=== PATIENT | female | born 1945 | race Caucasian/White ===

== ENCOUNTER 2018-03-21 07:48 | Outpatient (CLI) | payer MEDICARE ==
[2018-03-21] VITALS (21 sets, daily range): BP systolic 118–146; BP diastolic 72–95
== END 2018-03-21 23:59 | disposition home or self-care (01) ==
LOC: CARD DIAG 07:48
PROVIDERS: ATTEND Family Medicine
DX: R55 Syncope and collapse (principal)
CPT/HCPCS: 93660

== ENCOUNTER 2018-03-22 10:03 | Outpatient (CLI) | payer MEDICARE | END 2018-03-25 23:59 | disposition home or self-care (01) | LOC: RAD 10:03 | PROVIDERS: ATTEND Family Medicine | DX: R55 Syncope and collapse (principal); R40.0 Somnolence; R06.4 Hyperventilation | CPT/HCPCS: 95816 ==

== ENCOUNTER 2018-07-02 19:44 | Emergency (ER) | payer MEDICARE, OTHER ==
[~2018-07-02] VITALS: Ht 558.9 cm; Wt 78.0 kg
[2018-07-02 20:34] LABS: BASOPHILS # (AUTO) 0.1 X10'3 (0-0.2); BASOPHILS % (AUTO) 0.5 % (0-1); EOSINOPHILS # (AUTO) 0.1 X10'3 (0-0.9); EOSINOPHILS % (AUTO) 0.6 % (0-6); HEMATOCRIT 40.4 % (35.0-45.0); HEMOGLOBIN 13.6 g/dl (12.0-16.0); LYMPHOCYTES # (AUTO) 1.1 X10'3 (1.1-4.8); LYMPHOCYTES % (AUTO) 11.4 % (21-51); MEAN CORPUSCULAR HEMOGLOBIN 29.4 PG (27.0-31.0); MEAN CORPUSCULAR HGB CONC 33.6 % (33.0-36.5); MEAN CORPUSCULAR VOLUME 87.6 FL (78-98); MEAN PLATELET VOLUME 7.2 FL (7.4-10.4); MONOCYTES # (AUTO) 0.3 X10'3 (0-0.9); MONOCYTES % (AUTO) 2.8 % (2-12); NEUTROPHILS # (AUTO) 8.4 X10'3 (1.8-7.7); NEUTROPHILS % (AUTO) 84.7 % (42-75); PLATELET COUNT 342 X10'3 (140-440); RED BLOOD COUNT 4.61 X10'6 (4.20-5.60); WHITE BLOOD COUNT 9.9 X10'3 (4.5-11.0)
[2018-07-02] MEDS ORDERED: ondansetron/PF 4mg/2ml inj IV ONE (20:45)
[2018-07-02] MEDS ORDERED: pantoprazole 40 MG vial IV ONE (20:50)
[2018-07-02] MEDS ORDERED: famotidine/PF 10 mg/ml inj IV ONE (20:50)
[2018-07-02 21:22] LABS: PROTHROMBIN TIME 10.5 SECONDS (9.0-12.0)
[2018-07-02 21:29] LABS: ALANINE AMINOTRANSFERASE 21 U/L (12-78); ALBUMIN 3.3 G/DL (3.4-5.0); ALBUMIN/GLOBULIN RATIO 0.9 (1.1-1.5); ALKALINE PHOSPHATASE 85 IU/L (46-116); ANION GAP 6 (8-16); ASPARTATE AMINO TRANSFERASE 9 U/L (10-37); BILIRUBIN,TOTAL 0.3 MG/DL (0.1-1.0); BLOOD UREA NITROGEN 13 MG/DL (7-18); BUN/CREATININE RATIO 15.7 (6.6-38.0); CHLORIDE 97 MMOL/L (99-107); CREATININE 0.83 MG/DL (0.40-0.90); GLUCOSE 132 MG/DL (70-104); SODIUM 131 MMOL/L (135-145); TOTAL CARBON DIOXIDE 27.9 MMOL/L (24-32); TOTAL PROTEIN 6.8 G/DL (6.4-8.2); eGFR 68 ML/MIN
[2018-07-02 21:35] LABS: LIPASE 558 U/L (73-393)
[2018-07-02 21:50] LABS: MAGNESIUM 1.8 MG/DL (1.5-2.4)
[2018-07-02] MEDS ORDERED: OMEP20CA10 PO (21:54)
[2018-07-02] MEDS ORDERED: ONDA4TAB9 PO (21:54)
[2018-07-02] MEDS ORDERED: FAMO20TA44 PO (21:54)
[2018-07-02 22:03] LABS: CLARITY,URINE SLIGHTLY CLOUDY (Clear); COLOR,URINE YELLOW (Yellow); GLUCOSE, URINE NEGATIVE (Neg); KETONES,URINE NEGATIVE (Neg); LEUKOCYTE ESTERASE ,URINE MODERATE (Neg); NITRITES, URINE POSITIVE (Neg); OCCULT BLOOD,URINE SMALL (Neg); PROTEIN,URINE TRACE mg/dl (Neg); UROBILINOGEN,URINE 0.2 E.U/dL (0.2-1.0)
[2018-07-02 22:06] LABS: UA COLLECTION TYPE STRAIGHT CATH
[2018-07-02 22:09] LABS: BACTERIA,URINE 4+ /HPF (Neg); SQUAMOUS EPITHELIAL CELL,UR NONE SEEN /LPF (FEW); WBC,URINE TNTC /HPF (0-4)
[2018-07-02] MEDS ORDERED: CIPR-230 PO (22:14)
[2018-07-02 22:22] VITALS: BP 149/80
== END 2018-07-02 22:24 | disposition home or self-care (01) ==
LOC: ER 19:45
DX: K29.00 Acute gastritis without bleeding (principal)
CPT/HCPCS: 36415; 71045; 80053; 81001; 83690; 83735; 83880; 84484; 85025; 85610; 87077; 87088; 87186; 93005; 96374; 96375; 99285; C9113; J2405; J3490; J7030

== ENCOUNTER 2020-08-20 05:34 | Emergency (ER) | payer MEDICARE ==
[~2020-08-20] VITALS: Ht 160 cm; Wt 81.8 kg
[~2020-08-20 05:34] MED LIST: FAMO20TA44 PO; OMEP20CA15 PO
[2020-08-20] MEDS ORDERED: PENI500T2 PO (06:08)
--- NOTE | 2020-08-20 06:24 | NUR ---
missing teeth no recent dental care states she cant get into dentist
[2020-08-20 06:29] VITALS: BP 181/100
== END 2020-08-20 06:31 | disposition home or self-care (01) ==
LOC: ER 05:35
DX: K08.89 Other specified disorders of teeth and supporting structures (principal); Z79.899 Other long term (current) drug therapy
CPT/HCPCS: 99283

== ENCOUNTER 2021-03-24 17:38 | Emergency (ER) | payer BC ==
[~2021-03-24] VITALS: Ht 160 cm; Wt 90.6 kg
[2021-03-24] MEDS ORDERED: acetaminophen 325mg tablet PO ONE (18:35)
[2021-03-24] MEDS ORDERED: PENI500T2 PO (18:35)
== END 2021-03-24 20:25 | disposition home or self-care (01) ==
LOC: ER 17:38
DX: K04.7 Periapical abscess without sinus (principal); Z79.899 Other long term (current) drug therapy
CPT/HCPCS: 99283

== ENCOUNTER 2022-01-31 17:57 | Emergency (ER) | payer BC ==
[~2022-01-31] VITALS: Ht 160 cm; Wt 87.0 kg
[~2022-01-31 17:57] MED LIST changes: +CLE150C PO; -FAMO20TA44 PO; +IBUP-1985 PO; +LISI20TA28 PO; -OMEP20CA15 PO; +PANT40TA54 PO; +POTA-197 PO
[2022-01-31 18:18] VITALS: BP 141/77
== END 2022-01-31 21:55 | disposition home or self-care (01) ==
LOC: ER 17:58
DX: K42.9 Umbilical hernia without obstruction or gangrene (principal); Z79.2 Long term (current) use of antibiotics; Z79.899 Other long term (current) drug therapy
CPT/HCPCS: 99281

== ENCOUNTER 2022-03-22 09:04 | Emergency (ER) | payer BC, MEDICARE ==
[~2022-03-22] VITALS: Ht 157.5 cm; Wt 88.7 kg
[2022-03-22 10:32] LABS: BASOPHILS % (AUTO) 0.4 % (0-1); EOSINOPHILS # (AUTO) 0.1 X10'3 (0-0.9); EOSINOPHILS % (AUTO) 1.1 % (0-6); HEMATOCRIT 37.3 % (35.0-45.0); HEMOGLOBIN 12.5 g/dl (12.0-16.0); LYMPHOCYTES # (AUTO) 1.3 X10'3 (1.1-4.8); LYMPHOCYTES % (AUTO) 11.6 % (21-51); MEAN CORPUSCULAR HEMOGLOBIN 28.9 PG (27.0-31.0); MEAN CORPUSCULAR HGB CONC 33.6 g/dL (33.0-36.5); MEAN CORPUSCULAR VOLUME 86.1 FL (78-98); MEAN PLATELET VOLUME 6.8 FL (7.4-10.4); MONOCYTES # (AUTO) 0.7 X10'3 (0-0.9); MONOCYTES % (AUTO) 6.2 % (2-12); NEUTROPHILS % (AUTO) 80.7 % (42-75); PLATELET COUNT 295 X10'3 (140-440); RED BLOOD COUNT 4.33 X10'6 (4.20-5.60); WHITE BLOOD COUNT 11.1 X10'3 (4.5-11.0)
[2022-03-22 10:54] LABS: ALANINE AMINOTRANSFERASE 8 U/L (12-78); ALBUMIN 3.5 G/DL (3.4-5.0); ALBUMIN/GLOBULIN RATIO 0.8 (1.1-1.5); ALKALINE PHOSPHATASE 80 IU/L (46-116); ANION GAP 8 (8-16); ASPARTATE AMINO TRANSFERASE 19 U/L (10-37); BILIRUBIN,TOTAL 0.6 MG/DL (0.1-1.0); BLOOD UREA NITROGEN 12 MG/DL (7-18); BUN/CREATININE RATIO 14.3 (6.6-38.0); CHLORIDE 95 MMOL/L (99-107); CREATININE 0.84 MG/DL (0.40-0.90); GLUCOSE 86 MG/DL (70-104); LIPASE 58 U/L (73-393); POTASSIUM 4.1 MMOL/L (3.5-5.1); SODIUM 130 MMOL/L (135-145); TOTAL CARBON DIOXIDE 27.5 MMOL/L (24-32); TOTAL PROTEIN 7.8 G/DL (6.4-8.2); eGFR 66 ML/MIN
[2022-03-22 11:30] VITALS: BP 126/65
[2022-03-22 11:31] LABS: CLARITY,URINE SLIGHTLY CLOUDY (Clear); COLOR,URINE YELLOW (Yellow); GLUCOSE, URINE NEGATIVE (Neg); KETONES,URINE 15 mg/dl (Neg); LEUKOCYTE ESTERASE ,URINE SMALL (Neg); NITRITES, URINE NEGATIVE (Neg); OCCULT BLOOD,URINE MODERATE (Neg); PROTEIN,URINE TRACE mg/dl (Neg); UROBILINOGEN,URINE 0.2 E.U/dL (0.2-1.0)
[2022-03-22 11:38] LABS: UA COLLECTION TYPE STRAIGHT CATH
[2022-03-22 11:43] LABS: MUCUS STRANDS MODERATE /LPF (Neg); SQUAMOUS EPITHELIAL CELL,UR FEW /LPF (FEW)
[2022-03-22 11:45] LABS: BACTERIA,URINE FEW /HPF (Neg); HYALINE CASTS 0-3 /LPF (NEGATIVE); WBC CLUMPS,URINE FEW /HPF (NEGATIVE); WBC,URINE 50-100 /HPF (0-4)
[2022-03-22] MEDS ORDERED: cephalexin 250mg capsule PO ONE (12:05)
--- NOTE | 2022-03-22 13:51 | NUR ---
pt walked to the bathroom to try and void she says she was able to void some but not much decribed it as a few drops
[2022-03-22] MEDS ORDERED: LIDOcaine 2% 10ml TOPICAL JELLY (Urojet) TP ONE (13:55)
--- NOTE | 2022-03-22 14:20 | NUR ---
new f/c placed and leg bag placed about 700ml of urine drained
== END 2022-03-22 14:26 | disposition home or self-care (01) ==
LOC: ER 09:05
DX: R33.9 Retention of urine, unspecified (principal); R10.30 Lower abdominal pain, unspecified; Z98.890 Other specified postprocedural states; Z79.2 Long term (current) use of antibiotics; Z79.899 Other long term (current) drug therapy
CPT/HCPCS: 36415; 51702; 80053; 81001; 83690; 85025; 87088; 99284

== ENCOUNTER 2022-03-23 20:31 | Emergency (ER) | payer BC ==
[~2022-03-23] VITALS: Ht 157.5 cm; Wt 90.0 kg
[2022-03-23 20:57] VITALS: BP 146/76
--- NOTE | 2022-03-23 22:49 | NUR ---
pt informed nurse that she was leaking. cath inspection showed cath was disconnected from legbag. pt education given on legbag replacement. pt understood with return demo. cath reconnected to legbag and secured with tape.
== END 2022-03-23 23:22 | disposition home or self-care (01) ==
LOC: ER 20:33
DX: T83.031A Leakage of indwelling urethral catheter, initial encounter (principal); R33.9 Retention of urine, unspecified; Z98.890 Other specified postprocedural states; Z79.2 Long term (current) use of antibiotics; Z79.899 Other long term (current) drug therapy; Y84.6 Urinary catheterization as the cause of abnormal reaction of the patient, or of later complication, without mention of misadventure at the time of the procedure
CPT/HCPCS: 99284

== ENCOUNTER 2022-03-24 05:37 | Emergency (ER) | payer BC ==
[~2022-03-24] VITALS: Ht 157.5 cm; Wt 90.9 kg
[2022-03-24 05:44] VITALS: BP 133/78
== END 2022-03-24 10:04 | disposition home or self-care (01) ==
LOC: ER 05:38
DX: T83.031A Leakage of indwelling urethral catheter, initial encounter (principal); Z98.890 Other specified postprocedural states; Z79.2 Long term (current) use of antibiotics; Z79.899 Other long term (current) drug therapy; Y84.6 Urinary catheterization as the cause of abnormal reaction of the patient, or of later complication, without mention of misadventure at the time of the procedure
CPT/HCPCS: 99281

== ENCOUNTER 2025-05-25 21:13 | Emergency (ER) | payer BC, MEDICARE ==
[~2025-05-25] VITALS: Ht 160 cm; Wt 85.0 kg
--- NOTE | 2025-05-25 21:39 | Physician Documentation ---
History of Present Illness ~ Chief Complaint: Mechanical Fall Stated Complaint: FALL Time Seen by MD: 21:19 Primary Medical Doctor: [facility] Source: patient Mode of Arrival: EMS, Stretcher Exam Limitations: no limitations HPI BED 14 This patient is a 79-year-old female brought in by EMS for a fall. Per EMS patient has suffered a ground level fall prior to arrival, no reported head strike. Patient is not on blood thinners. She only reports some pain in her right shoulder neck. She denies any cardiac history. Her last tetanus is unknown. Patient was aspect he denies feeling weak or tired prior to her fall and states that her sandal was caught under her foot which caused her fall. Patient denies any associated symptoms at this time. Patient denies any alleviating or exacerbating factors. Tetanus within 5 Years?: No Medication Reconciliation Allergies: Coded Allergies: No Known Allergies (Unverified , 01/31/22) Scheduled Clindamycin HCl (Clindamycin HCl), 150 MG PO Q6H Ibuprofen (Ibuprofen), 1 TAB PO Q8H Lisinopril (Lisinopril), 20 MG PO DAILY Pantoprazole Sodium (Pantoprazole Sodium), 40 MG PO BID Potassium Chloride (Klor-Con M20), 1 TAB PO DAILY Sulfamethoxazole/Trimethoprim (Bactrim Ds Tablet), 1 TAB PO Q12H Scheduled PRN Hydrocodone Bit/Acetaminophen 5/325 MG ([place] 5/325 MG), 1 TAB PO TID PRN PRN for pain Past Medical History Past Medical History: Hernia Past Surgical History: abdominal surgery Other Past Surgical History: Multiple hernia repair surgeries Smoking Status: Unknown if ever smoked Alcohol Use: None Drug Use: none Lives In: Home Occupation: employed Review of Systems All Other Systems at this time: Reviewed and Negative Physical Exam Vital Signs: Temperature: 98.2, Source: Temporal, Heart Rate: 56, Respiratory Rate: 18, BP: 140/80, Pulse Oximetry: 97, Weight: 85.000 Oxygen Flow Rate: 0 Physical Exam General: The patient is well developed, well nourished, nontoxic appearing and is in no acute distress. Skin: [place], warm and dry with no rashes. HEENT: 2.5cm Linear laceration over the left eyebrow. Skin loss and abrasion over the nose. Otherwise: Head was normocephalic and atraumatic. Eyes - pupils equal, round, reactive to light and accommodation. Extraocular movements were intact. Conjunctivae were nonicteric. Ears - bilateral tympanic membranes were normal. The mouth and oropharynx were clear with moist mucous membranes. There were no pharyngeal exudates or erythema. Neck: Supple and nontender. There was no jugular venous distention, lymphadenopathy, thyromegaly or masses. Chest: Clear to auscultation bilaterally without wheezes, rales or rhonchi. No accessory muscle use. No dullness to percussion. Heart: Rate regular and rhythmic. S1, S2. No murmurs. Palpation of the chest wall was normal. No rubs or thrills. Abdomen: Soft, nontender and nondistended. Positive bowel sounds. No guarding or rebound. No hepatosplenomegaly or palpable masses. Extremities: No cyanosis, clubbing or edema. The patient moves all extremities. Pulses were equal and symmetric. Neurologic: Cranial nerves II-XII were intact. Sensation was intact to light touch throughout. Motor strength was 5/5 in all four extremities. Deep tendon reflexes were intact in both upper and lower extremities. Psychologic: The patient was oriented to person, place and time. The patient demonstrated appropriate judgement and insight. Procedures Laceration Repair : Location: Left Brow Length (cm): 2.5 Anesthesia: Lidocaine w/ Epi Volume Anesthetic (mls): 1 Prep: betadine, cholorprep, irrigated by nurse Irrigated w/ Saline (mls): 500 Repaired: skin Wound Repaired With: sutures Suture Size/Type: 5-0, ethilon Number of Superficial Sutures: 3 Dressing Applied: simple, bacitracin Tolerated Procedure Well?: yes, no complications Progress Results/Orders Reviewed/noted all lab results: Yes Results/Orders Orders - TAM THAKKAR MD Electrocardiogram (05/25/25 21:17) Ct Cervical Spine (05/25/25 23:10) Ct Head (05/25/25 23:10) Laceration/I&D Tray Set Up (05/25/25 21:43) Wound Care Orders (05/25/25 21:43) Chest,Single View (05/25/25 22:22) Monitor (05/25/25 21:48) Electrocardiogram (05/25/25 21:48) Ct Upper Extrem(Shoulder/Arm) (05/25/25 23:10) Shoulder, Complete (Min 2 Vws) (05/25/25 22:22) Completed Orders - TAM THAKKAR MD Ct Cervical Spine (05/25/25 23:10) Ct Head (05/25/25 23:10) Hydrocodone/Apap 10/325 ([place] 10/325mg (05/25/25 21:50) Cbc/Diff (05/25/25 21:48) MG (05/25/25 21:48) Pt Inr (05/25/25 21:48) PTT (05/25/25 21:48) PBNP (05/25/25 21:48) Chest,Single View (05/25/25 22:22) BMP (05/25/25 21:48) Hs Troponin I W Calculations (05/25/25 21:48) Ct Upper Extrem(Shoulder/Arm) (05/25/25 23:10) Shoulder, Complete (Min 2 Vws) (05/25/25 22:22) Lidocaine 1% W/Epi 1:100,000 (Xylocaine (05/25/25 21:45) Sulfamethox/Trimetho. Ds Tab (Septra Ds (05/26/25 02:20) Medications Received in ER Medications (Trade) Dose Ordered Sig/Evelia Route PRN Reason Start Time Stop Time Status Last Admin Dose Admin ([place] 10/325mg tab) 1 tab ONCE ONCE PO 05/25/25 21:50 05/25/25 21:51 DC 05/25/25 23:05 1 TAB (Septra DS tab) 1 tab ONCE ONCE PO 05/26/25 02:20 05/26/25 02:25 DC 05/26/25 02:40 1 TAB Vital Signs 05/25/25 05/25/25 05/25/25 05/26/25 21:18 21:22 23:40 03:40 Temp 98.2 98.2 98.2 Pulse 56 75 Resp 18 18 16 B/P (MAP) 140/80 150/99 (116) Pulse Ox 97 96 O2 Flow Rate 0 0 Laboratory Tests Test 05/25/25 21:57 White Blood Count 10.1 Red Blood Count 4.02 L Hemoglobin 12.0 Hematocrit 34.9 L Mean Corpuscular Volume 86.7 Mean Corpuscular Hemoglobin 29.9 Mean Corpuscular Hemoglobin Concent 34.4 Red Cell Distribution Width 13.5 Platelet Count 279 Mean Platelet Volume 7.2 L Neutrophils (%) (Auto) 73.8 Lymphocytes (%) (Auto) 16.9 L Monocytes (%) (Auto) 5.8 Eosinophils (%) (Auto) 3.1 Basophils (%) (Auto) 0.4 Neutrophils # (Auto) 7.4 Lymphocytes # (Auto) 1.7 Monocytes # (Auto) 0.6 Eosinophils # (Auto) 0.3 Basophils # (Auto) 0.0 CBC Comment Prothrombin Time 10.4 INR International Normalized Ratio 1.0 Activated Partial Thromboplast Time 25 Coagulation Comments Sodium Level 132 L Potassium Level 3.5 Chloride Level 99 Carbon Dioxide Level 27.5 Anion Gap 6 L Blood Urea Nitrogen 8 Creatinine 0.89 Estimated GFR/1.73 m2 62 BUN/Creatinine Ratio 9.0 L Glucose Level 122 H Calcium Level 8.5 Magnesium Level 1.7 Troponin I High Sensitivity 4 Pro-B-Type Natriuretic Peptide 104 Albumin 3.1 L Chemistry Comments EKG/XRAY/CT/US/VASC/MRI EKG : Intepreting Monitor?: Yes Additional Comment 2119: EDMD DR. Thakkar interpreted the EKG to show normal sinus rhythm at a rate of 56bpm, good R wave progression. Normal intervals. QTc of 407ms. Chest X-Ray : Interpreted By: both Additional Comments [place] [address] DIAGNOSTIC RADIOLOGY Patient: RANDY GARCIA Medical Record: [id number] [facility] : 1945, Age: 79 Sex: Female Location: ER Patient Status: REG ER Service Date/Time: 05/25/252221 Ordering Physician: TAM THAKKAR MD Exam: CHEST,SINGLE VIEW CHEST RADIOGRAPH Indication: CHEST PAIN Technique: Single frontal view of the chest was obtained COMPARISON: CHEST,SINGLE VIEW on DOS: 04/01/21 FINDINGS: Lines and Tubes: None Lungs: Clear Pleura: No effusion. No pneumothorax. Cardiomediastinal contours: Unremarkable. Atherosclerotic vascular calcifications. Bones: Unremarkable IMPRESSION: 1. No acute disease. Electronically Signed by:BARRINGTON OKAES MD Date & Time: 05/25/252231 Dictated by: BARRINGTON OAKES MD Dictation date and time: 05/25/252231 Primary Care Provider: NO PRIMARY CARE PROVIDER cc: TAM THAKKAR MD ~ Bone/Soft Tissue X-Ray (Ext.) : Interpreted By: both Additional Comment [address] [address] DIAGNOSTIC RADIOLOGY Patient: RANDY GARCIA Medical Record: [id number] [facility] : 1945, Age: 79 Sex: Female Location: ER Patient Status: [facility] ER Service Date/Time: 05/25/252221 Ordering Physician: TAM THAKKAR MD Exam: SHOULDER, COMPLETE (MIN 2 VWS) EXAM: DI SHOULDER, COMPLETE (MIN 2 VWS) REASON FOR EXAM: trauma right shoulder TECHNIQUE: Internally and externally rotated AP views of the right shoulder are submitted for review. COMPARISON: None FINDINGS: There is mild demineralization of the bones. There is acute fracture of the surgical neck of the humerus with minimal impaction. The soft tissues are grossly unremarkable. IMPRESSION: Acute fracture of the surgical neck of the humerus with minimal impaction. Electronically Signed by:CLAYTON SALGADO MD Date & Time: 05/25/252243 Dictated by: CLAYTON SALGADO MD Dictation date and time: 05/25/25 7416 Primary Care Provider: NO PRIMARY CARE PROVIDER cc: TAM THAKKAR MD ~ CT #1: Interpreted By: both CT: upper extremity Impression [address] [place], [facility] [address] CAT SCAN Patient: RANDY GARCIA Medical Record: [id number] [facility] : 1945, Age: 79 Sex: Female Location: ER Patient Status: [facility] ER Service Date/Time: 05/25/252309 Ordering Physician: TAM THAKKAR MD Exam: CT UPPER EXTREM(SHOULDER/ARM) INDICATION: right shoulder fracture COMPARISON: None TECHNIQUE: CT of the right shoulder was performed without contrast. Volume trans verse images were obtained and reconstructed in multiple planes using bone and soft tissue algorithms. CONTRAST: None Radiation Dose Information: CTDI volume is 25 mGy. Dose-length product is 691 mGy*cm FINDINGS: There is mildly comminuted acute fracture of the surgical and anatomical neck of the proximal right humerus. There is moderate shoulder effusion. There is no dislocation of the articular surface of the humeral head with respect of the glenoid fossa. The scapula and the clavicle are intact. No rib fracture is identified. There is a 1.7 cm well-circumscribed bone cyst within the anterolateral portion of the humeral head. There is no lymphadenopathy in the axilla. The visualized portion of the lungs is within normal limits. IMPRESSION: Mildly comminuted acute fracture of the surgical and anatomical neck of the proximal humerus. Moderate shoulder effusion. All CT scans at this medical facility are performed using dose modulation techniques as appropriate to a performed exam including the following: Automated exposure control was utilized; adjustment of the MA and/or KV according to patient size; and use of iterative reconstruction technique. Electronically Signed by:CLAYTON SALGADO MD Date & Time: 05/25/252334 Dictated by: CLAYTON SALGADO MD Dictation date and time: 05/25/252334 Primary Care Provider: NO PRIMARY CARE PROVIDER cc: TAM THAKKAR MD ~ CT #2: Interpreted By: both CT: head With Contrast?: No Impression [address] [address] CAT SCAN Patient: RANDY GARCIA Medical Record: [id number] [facility] : 1945, Age: 79 Sex: Female Location: ER Patient Status: [facility] ER Service Date/Time: 05/25/252309 Ordering Physician: TAM THAKKAR MD Exam: CT HEAD COMPUTERIZED TOMOGRAPHY OF THE HEAD WITHOUT CONTRAST COMPUTERIZED TOMOGRAPHY OF THE CERVICAL SPINE, NONCONTRAST REASON FOR STUDY: trauma COMPARISON: None TECHNIQUE: Helical tomographic scans were obtained through the brain. 2-D coronal and sagittal reformatted images are provided. Automated exposure control was used. CT of the entire cervical spine was performed in routine fashion with sagittal a nd coronal reconstructions. Soft tissues and bone windows were filmed. Radiation optimization: All CT scans at this facility use at least one of these dose optimization techniques: Automated exposure control mA and/or kV adjustment per patient size (includes targeted exams where dose is matched to clinical indication) or iterative reconstruction. RADIATION DOSE: Head: CTDI: 71 mGy DLP: 1334 mGy-cm C-Spine: CTDI: 23 mGy DLP: 541 mGy-cm FINDINGS: No suspicious intracranial hyperdensity to suggest acute blood. There is no mass effect nor midline shift. There is mild generalized volume loss with compensatory enlargement of the CSF spaces. There is no hydrocephalus. The suprasellar cistern is intact. There are scattered periventricular and deep white matter hypodensities that are most consistent with chronic microangiopathic changes. The calvarium is intact. The visualized mastoid air cells and paranasal sinuses are clear. The patient is status post bilateral lens surgeries. The vertebral bodies are normal in height with no evidence of fracture. There is maintenance of the normal cervical lordosis. There is severe disc height loss throughout the cervical spine with endplate hypertrophy. There is severe facet joint narrowing with hypertrophy throughout the cervical spine. The visualized lung apices are clear. There is no pathologic lymphadenopathy in the neck by size criteria. IMPRESSION: No acute intracranial abnormality. Mild generalized volume loss with chronic small vessel ischemic change. No evidence of acute fracture of the cervical spine. Severe cervical spine degenerative disc disease and facet arthropathy. Electronically Signed by:CLAYTON SALGADO MD Date & Time: 05/25/252325 Dictated by: CLAYTON SALGADO MD Dictation date and time: 05/25/252325 Primary Care Provider: NO PRIMARY CARE PROVIDER cc: TAM THAKKAR MD ~ CT #3: Interpreted By: both CT: C-spine With Contrast?: No Impression [address] [address] CAT SCAN Patient: RANDY GARCIA Medical Record: [id number] [facility] : 1945, Age: 79 Sex: Female Location: ER Patient Status: REG ER Service Date/Time: 05/25/252309 Ordering Physician: TAM THAKKAR MD Exam: CT CERVICAL SPINE COMPUTERIZED TOMOGRAPHY OF THE HEAD WITHOUT CONTRAST COMPUTERIZED TOMOGRAPHY OF THE CERVICAL SPINE, NONCONTRAST REASON FOR STUDY: trauma COMPARISON: None TECHNIQUE: Helical tomographic scans were obtained through the brain. 2-D coronal and sagittal reformatted images are provided. Automated exposure control was used. CT of the entire cervical spine was performed in routine fashion with sagittal and coronal reconstructions. Soft tissues and bone windows were filmed. Radiation optimization: All CT scans at this facility use at least one of these dose optimization techniques: Automated exposure control mA and/or kV adjustment per patient size (includes targeted exams where dose is matched to clinical indication) or iterative reconstruction. RADIATION DOSE: Head: CTDI: 71 mGy DLP: 1334 mGy-cm C-Spine: CTDI: 23 mGy DLP: 541 mGy-cm FINDINGS: No suspicious intracranial hyperdensity to suggest acute blood. There is no mass effect nor midline shift. There is mild generalized volume loss with compensatory enlargement of the CSF spaces. There is no hydrocephalus. The suprasellar cistern is intact. There are scattered periventricular and deep white matter hypodensities that are most consistent with chronic microangiopathic changes. The calvarium is intact. The visualized mastoid air cells and paranasal sinuses are clear. The patient is status post bilateral lens surgeries. The vertebral bodies are normal in height with no evidence of fracture. There is maintenance of the normal cervical lordosis. There is severe disc height loss throughout the cervical spine with endplate hypertrophy. There is severe facet joint narrowing with hypertrophy throughout the cervical spine. The visualized lung apices are clear. There is no pathologic lymphadenopathy in the neck by size criteria. IMPRESSION: No acute intracranial abnormality. Mild generalized volume loss with chronic small vessel ischemic change. No evidence of acute fracture of the cervical spine. Severe cervical spine degenerative disc disease and facet arthropathy. Electronically Signed by:CLAYTON SALGADO MD Date & Time: 05/25/252325 Dictated by: CLAYTON SALGADO MD Dictation date and time: 05/25/252325 Primary Care Provider: NO PRIMARY CARE PROVIDER cc: TAM THAKKAR MD ~ Departure Time of Disposition: 02:15 Disposition: 01 HOME / SELF CARE / HOMELESS Impression: Primary Impression: Fall Qualified Codes: W19.XXXA - Unspecified fall, initial encounter Additional Impressions: Facial laceration Qualified Codes: S01.81XA - Laceration without foreign body of other part of head, initial encounter Humeral fracture Qualified Codes: S42.214A - Unspecified nondisplaced fracture of surgical neck of right humerus, initial encounter for closed fracture Condition: Stable Discharge Instructions: Fall Prevention in the Home, Adult, [id number], Humerus Fracture Treated With Immobilization Additional Instructions: Please follow up with an orthopedist. The name and contact information of one has been included in your paperwork. Referrals: NO PRIMARY CARE PROVIDER (PCP) MARTHA CROWE Jr., MD Prescriptions Hydrocodone Bit/Acetaminophen 5/325 MG ([place] 5/325 MG) 5 Mg/325 Mg Tablet 1 TAB PO TID PRN PRN for pain for 5 Days, #15 TAB Prov: TAM THAKKAR MD 05/26/25 Sulfamethoxazole/Trimethoprim (Bactrim Ds Tablet) 800 Mg-160 Mg Tablet 1 TAB PO Q12H for 5 Days, #10 TAB Prov: TAM THAKKAR MD 05/26/25 Signature Scribe Signature: Scribed for Tam Thakkar MD by Keiko Santos. 05/25/25 22:12 TAM THAKKAR MD May 25, 2025 21:39
[2025-05-25] MEDS: LIDOcaine 1% W/epiNEPHrine 1:100,000 20ml vial IJ ONE (21:45)
[2025-05-25 22:04] LABS: MEAN PLATELET VOLUME 7.2 FL (7.4-10.4); RED CELL DISTRIBUTION WIDTH 13.5 % (11.5-14.5)
[2025-05-25 22:17] LABS: APTT 25 SECONDS (22-32); INR 1.0 INR
[2025-05-25 22:25] LABS: CREATININE 0.89 MG/DL (0.40-0.90); PRO BRAIN NATRIURETIC PEPTIDE 104 PG/ML (0-450); TOTAL CARBON DIOXIDE 27.5 MMOL/L (24-32); eCRCL 44 ML/MIN; eGFR 62 ML/MIN
--- NOTE | 2025-05-25 22:35 | RADIOLOGY REPORT ---
CHEST RADIOGRAPH Indication: CHEST PAIN Technique: Single frontal view of the chest was obtained COMPARISON: CHEST,SINGLE VIEW on DOS: 04/01/21 FINDINGS: Lines and Tubes: None Lungs: Clear Pleura: No effusion. No pneumothorax. Cardiomediastinal contours: Unremarkable. Atherosclerotic vascular calcifications. Bones: Unremarkable IMPRESSION: 1. No acute disease.
--- NOTE | 2025-05-25 22:46 | RADIOLOGY REPORT ---
EXAM: DI SHOULDER, COMPLETE (MIN 2 VWS) REASON FOR EXAM: trauma right shoulder TECHNIQUE: Internally and externally rotated AP views of the right shoulder are submitted for review. COMPARISON: None FINDINGS: There is mild demineralization of the bones. There is acute fracture of the surgical neck o f the humerus with minimal impaction. The soft tissues are grossly unremarkable. IMPRESSION: Acute fracture of the surgical neck of the humerus with minimal impaction.
[2025-05-25] MEDS: HYDROcodone/acetaminophen 10/325mg tab PO ONE (23:05)
--- NOTE | 2025-05-25 23:29 | RADIOLOGY REPORT ---
COMPUTERIZED TOMOGRAPHY OF THE HEAD WITHOUT CONTRAST COMPUTERIZED TOMOGRAPHY OF THE CERVICAL SPINE, NONCONTRAST REASON FOR STUDY: trauma COMPARISON: None TECHNIQUE: Helical tomographic scans were obtained through the brain. 2-D coronal and sagittal reform atted images are provided. Automated exposure control was used. CT of the entire cervical spine was performed in routine fashion with sagittal and coronal reconstruc tions. Soft tissues and bone windows were filmed. Radiation optimization: All CT scans at this [facility] use at least one of these dose optimization techniques: Automated exposure control mA and/or kV a djustment per patient size (includes targeted exams where dose is matched to clinical indication) or iterative reconstruction. RADIATION DOSE: Head: CTDI: 71 mGy DLP: 1334 mGy-cm C-Spine: CTDI: 23 mGy DLP: 541 mGy-cm FINDINGS: No suspicious intracranial hyperdensity to suggest acute blood. There is no mass effect n or midline shift. There is mild generalized volume loss with compensatory enlargement of the CSF spac es. There is no hydrocephalus. The suprasellar cistern is intact. There are scattered periventricular and deep white matter hypodensities that are most consistent with chronic microangiopathic changes. The calvarium is intact. The visualized mastoid air cells and paranasal sinuses are clear. The patien t is status post bilateral lens surgeries. The vertebral bodies are normal in height with no evidence of fracture. There is maintenance of the n ormal cervical lordosis. There is severe disc height loss throughout the cervical spine with endplate hypertrophy. There is severe facet joint narrowing with hypertrophy throughout the cervical spine. T he visualized lung apices are clear. There is no pathologic lymphadenopathy in the neck by size crite sarika. IMPRESSION: No acute intracranial abnormality. Mild generalized volume loss with chronic small vessel ischemic ch jv. No evidence of acute fracture of the cervical spine. Severe cervical spine degenerative disc disease and facet arthropathy.
--- NOTE | 2025-05-25 23:38 | RADIOLOGY REPORT ---
INDICATION: right shoulder fracture COMPARISON: None TECHNIQUE: CT of the right shoulder was performed without contrast. Volume transverse images were obt ained and reconstructed in multiple planes using bone and soft tissue algorithms. CONTRAST: None Radiation Dose Information: CTDI volume is 25 mGy. Dose-length product is 691 mGy*cm FINDINGS: There is mildly comminuted acute fracture of the surgical and anatomical neck of the proximal right h umerus. There is moderate shoulder effusion. There is no dislocation of the articular surface of the humeral head with respect of the glenoid fossa. The scapula and the clavicle are intact. No rib frac ture is identified. There is a 1.7 cm well-circumscribed bone cyst within the anterolateral portion o f the humeral head. There is no lymphadenopathy in the axilla. The visualized portion of the lungs is within normal limits. IMPRESSION: Mildly comminuted acute fracture of the surgical and anatomical neck of the proximal humerus. Modera te shoulder effusion. All CT scans at this medical facility are performed using dose modulation techniques as appropriate t o a performed exam including the following: Automated exposure control was utilized; adjustment of th e MA and/or KV according to patient size; and use of iterative reconstruction technique.
[2025-05-25 23:40] VITALS: BP 150/99; PULSE 75; RESP 16; O2SAT 96
[2025-05-26] MEDS ORDERED: SULF1TAB49 PO (02:20)
[2025-05-26] MEDS ORDERED: HYDR-3965 PO (02:20)
[2025-05-26] MEDS: sulfamethoxazole/trimethoprim DS (800/160mg) tablet PO ONE (02:40)
[2025-05-26 03:40] VITALS: TEMP 98.2
--- NOTE | 2025-05-26 06:28 | ELECTROCARDIOGRAPH REPORT ---
[facility] Test Date: 2025-05-25 Test Time: 21:20:13 Pat Name: RANDY GARCIA Department: [facility]-ER Patient ID: [facility]-[id number] Room: Gender: F [employer]: : 1945 Requested By: ROBERT THAKKAR Order Number: [id number] Reading MD: Dr. Robert Thakkar Measurements Intervals [place] Rate: 56 P: 1 TX: 149 QRS: 0 QRSD: 98 T: 36 QT: 421 QTc: 407 Interpretive Statements Sinus bradycardia Abnormal R-wave progression, early transition Electronically Signed On 05-26-2025 18:34:[address] Robert Thakkar Please click the below link to view image of tracing.
== END 2025-05-26 03:42 | disposition home or self-care (01) ==
LOC: ER 21:13
DX: S42.211A Unspecified displaced fracture of surgical neck of right humerus, initial encounter for closed fracture (principal); S01.81XA Laceration without foreign body of other part of head, initial encounter; R06.02 Shortness of breath; Z98.890 Other specified postprocedural states; W01.0XXA Fall on same level from slipping, tripping and stumbling without subsequent striking against object, initial encounter; Y93.89 Activity, other specified; Y92.89 Other specified places as the place of occurrence of the external cause; Y99.8 Other external cause status
CPT/HCPCS: 12011; 36415; 70450; 71045; 72125; 73030; 73200; 80048; 83735; 83880; 84484; 85025; 85610; 85730; 93005; 99285; A4565